=== PATIENT | female | born 1950 | race Caucasian/White ===

== ENCOUNTER → 2022-05-24 16:55 | Outpatient (CLI) | payer MEDICARE, OTHER, SELFPAY ==
--- NOTE | 2022-05-24 17:00 | DI.MRI.S_ITS ---
PROCEDURE: MR LUMBAR SPINE WO CON INDICATIONS: Low back pain, unspecified TECHNIQUE: Noncontrast sagittal T1 spin echo and T2 fast echo, sagittal STIR, and T2 fast spin echo through the lumbar spine. In cases with scoliosis, additional coronal T2 fast spin echo may be performed. COMPARISON: None. FINDINGS: Image quality: Excellent. Alignment and Curvature: Mild levoconvex scoliotic curvature is noted. No focal AP alignment abnormality is seen. Bone Marrow: Marrow is of normal overall signal. No acute vertebral body compression fractures. Spinal Cord: Conus medullaris terminates at the T12 level. Visualized cord demonstrates normal signal and size. Paraspinous Soft Tissues: No paravertebral masses. T12-L1: Normal appearance. L1-L2: [id number] loss of disc height and disc signal can be seen. Mild disc bulge is seen at this level, which is eccentric to the right. There is a superimposed central disc protrusion. No neural foraminal narrowing can be seen. Minimal central canal narrowing is seen. L2-L3: Moderate loss of disc height is seen. Loss of disc signal is seen. Remote Schmorl's nodes can be seen at the inferior endplate of L2 and the superior endplate of L3. Mild to moderate disc bulge is seen. There is a superimposed central disc protrusion. There is mild left-sided and moderate right-sided neural foraminal narrowing. Moderate central canal narrowing is seen. L3-L4: The disc height is well-preserved. Loss of disc signal is seen at this level. Moderate generalized disc bulge is seen. There is a superimposed central disc protrusion. Moderate facet joint hypertrophy is seen. Mild bilateral neural foraminal narrowing is seen. Mild central canal narrowing is seen. L4-L5: Moderate loss of disc height is seen. Loss of disc signal is seen. Moderate generalized disc bulge is seen. There is a superimposed central disc protrusion. Moderate facet joint hypertrophy is seen. There is moderate left-sided and no significant right-sided neural foraminal narrowing. Minimal central canal narrowing is seen. L5-S1: The disc height and disk signal are well-preserved. Moderate disc bulge is seen, which is eccentric to the left. Bridging endplate osteophytes are seen on the left, as on series 2, image 7. Moderate facet joint hypertrophy is seen. There is moderate left-sided, with a mild degree of compression upon the exiting left L5 nerve root. There is no significant right-sided neural foraminal narrowing. Mild central canal narrowing is seen. 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 IMPRESSION: No acute abnormality is seen to explain the patient's acute presentation. Multiple levels of underlying degenerative change can be seen, which are overall worst inferiorly. Dictated by: Kris Veloz M.D. on 05/24/2022 at 17:50 Approved by: Kris Veloz M.D. on 05/24/2022 at 17:54
== END ==
PROVIDERS: PCP Specialist; Referring Provider Specialist; Visit Provider Specialist
DX: M54.50 Low back pain, unspecified (principal); M47.816 Spondylosis without myelopathy or radiculopathy, lumbar region; M47.817 Spondylosis without myelopathy or radiculopathy, lumbosacral region
CPT/HCPCS: 72148